=== PATIENT | female | born 1955 | race Caucasian/White ===

== ENCOUNTER 2016-05-17 14:12 | Emergency (ER) | payer MEDICAID ==
--- NOTE | 2016-05-17 14:12 | EDPHY ---
H & P Time Seen by Provider: 05/17/16 14:12 HPI/ROS: CHIEF COMPLAINT: Passed out, possible seizure HISTORY OF PRESENT ILLNESS: History from patient, EMS, and the patient's mother. Approximately 1:30 p.m. the patient was eating lunch with her family with the mother related better head dropped down, she started drooling saliva onto her shirt, and she tensed up and was holding a plate and in fact clutching at so hard that her mother and family had to pry her fingers off of it and she was like this for may be at least 8 minutes. When she did come around she was a bit confused including aphasic when EMS arrived. Now she feels fine but the patient does not remember any of this event. Further history limited by the patient's amnesia. EMS glucose was 118. REVIEW OF SYSTEMS: Eye: no change in vision ENT: no sore throat Cardiac: no chest pain or syncope Pulmonary: no cough or SOB Abdomen: no vomiting, diarrhea, abdominal pain Musculoskeletal: no back pain Skin: no rash Neuro: no headache Constitutional: no fever : no urinary symptoms A comprehensive 10 point review of systems is otherwise negative aside from elements mentioned in the history of present illness. PAST MEDICAL HISTORY: Agoraphobia otherwise negative Social history: Denies tobacco drugs or alcohol General Appearance: Alert and conversant, cooperative. Eyes: No scleral icterus. ENT, Mouth: Normal mucous membranes. No tongue laceration or abrasion Respiratory: Normal respiratory effort, breath sounds equal, lungs are clear to auscultation. Cardiovascular: Regular rate and rhythm. Gastrointestinal: Abdomen is soft and non tender. Neurological: Alert and oriented x3. Normally conversant. Face symmetric, normal movement and sensation in all extremities. Normal [id number] and extraocular motion intact and no tremor or pronator drift. Skin: Warm and dry, no rashes. Musculoskeletal: No peripheral edema and no joint swelling. Normal range of motion of the neck. Psychiatric: Not agitated. Emergency Department course/MDM: 1428: Patient became transiently tachycardic with heart rate in 130's unresponsive, trying to pull off her pulse oximeter, nonverbal in staring. Possible partial or grand mal seizure activity. I think syncope is less likely. Plan for EKG, noncontrast head CT, CBC and chemistries. 1600: Results discussed with the mother, patient is very sleepy at this point after the Ativan, possible seizure but would discharge at this point with outpatient neurology follow-up. 1650: Alert and awake, results discussed, plan to discharge with outpatient follow-up. Constitutional: Initial Vital Signs Temperature (C) 36.8 C 05/17/16 14:22 Heart Rate 83 05/17/16 14:22 Respiratory Rate 18 05/17/16 14:22 Blood Pressure 163/90 H 05/17/16 14:22 O2 Sat (%) 94 05/17/16 14:22 O2 Delivery Mode Nasal Cannula O2 (L/minute) 3 Allergies/Adverse Reactions: No Known Allergies Allergy (Unverified 05/17/16 14:22) Home Medications: Medication Instructions Recorded NK [No Known Home Meds] 05/17/16 Medical Decision Making - Diagnostics Imaging: Normal head CT per [facility] 1520. Differential Diagnosis: Differential considered including but not limited to partial seizure, primary psychiatric, generalized seizure, syncope or dysrhythmia, metabolic or hypoglycemia. - Data Points Laboratory Results: Laboratory Results 05/17/16 14:10 05/17/16 14:10 05/17/16 05/17/16 14:10 14:10 WBC 6.07 10^3/uL 10^3/uL (3.80-9.50) RBC 4.85 10^6/uL 10^6/uL (4.18-5.33) Hgb 14.5 g/dL g/dL (12.6-16.3) Hct 43.1 % % (38.0-47.0) MCV 88.9 fL fL (81.5-99.8) MCH 29.9 pg pg (27.9-34.1) MCHC 33.6 g/dL g/dL (32.4-36.7) RDW 13.4 % % (11.5-15.2) Plt Count 261 10^3/uL 10^3/uL (150-400) MPV 9.1 fL fL (8.7-11.7) Neut % (Auto) 77.3 % H % (39.3-74.2) Lymph % (Auto) 13.5 % L % (15.0-45.0) [place] % (Auto) 6.8 % % (4.5-13.0) Eos % (Auto) 1.3 % % (0.6-7.6) Baso % (Auto) 0.8 % % (0.3-1.7) Nucleat RBC Rel Count 0.0 % % (0.0-0.2) Absolute Neuts (auto) 4.69 10^3/uL 10^3/uL (1.70-6.50) Absolute Lymphs (auto) 0.82 10^3/uL L 10^3/uL (1.00-3.00) Absolute Monos (auto) 0.41 10^3/uL 10^3/uL (0.30-0.80) Absolute Eos (auto) 0.08 10^3/uL 10^3/uL (0.03-0.40) Absolute Basos (auto) 0.05 10^3/uL 10^3/uL (0.02-0.10) Absolute Nucleated RBC 0.00 10^3/uL 10^3/uL (0-0.01) Immature Gran % 0.3 % % (0.0-1.1) Immature Gran # 0.02 10^3/uL 10^3/uL (0.00-0.10) Sodium 142 mEq/L mEq/L (134-144) Potassium 3.9 mEq/L mEq/L (3.5-5.2) Chloride 104 mEq/L mEq/L (97-110) Carbon Dioxide 22 mEq/l mEq/l (22-31) Anion Gap 16 mEq/L mEq/L (8-16) BUN 18 mg/dL mg/dL (7-23) Creatinine 0.9 mg/dL mg/dL (0.6-1.0) Estimated GFR > 60 Glucose 117 mg/dL H mg/dL (70-100) Calcium 9.8 mg/dL mg/dL (8.5-10.4) Troponin I < 0.012 ng/mL ng/mL (0-0.034) Medications Given: Discontinued Medications Lorazepam (Ativan Injection) 1 mg IVP EDNOW ONE Stop: 05/17/16 14:33 Last Admin: 05/17/16 14:33 Dose: 1 mg Departure - Departure Disposition: Home, Routine, Self-Care Clinical Impression: Seizure disorder Condition: Good Instructions: Epilepsy (ED) Additional Instructions: Possible seizure. No driving until approved by follow-up physician. Your referred to Neurology. Referrals: [facility] [Clinic] - As per Instructions Patient,NotPresent [Unknown] - As per Instructions Maulik Ledbetter DO [Doctor of Osteopathy] - As per Instructions
[2016-05-17] MEDS ORDERED: LORazepam 2 MG/ML INJ ONE (14:29)
[2016-05-17] MEDS ORDERED: LORazepam 2 MG/ML INJ IVP ONE (14:32)
[2016-05-17 14:55] LABS: % IMMATURE GRANULYOCYTES 0.3 % (0.0-1.1); ABSOLUTE IMMATURE GRANULOCYTES 0.02 10^3/uL (0.00-0.10); ADD DIFF? NO; ADD MORPH? NO; ADD SCAN? NO; ATYPICAL LYMPHOCYTE FLAG 0 (0-99); FRAGMENT RBC FLAG 0 (0-99); HEMATOCRIT 43.1 % (38.0-47.0); HEMOGLOBIN 14.5 g/dL (12.6-16.3); LEFT SHIFT FLG 0 (0-99); LIPEMIA HEMOLYSIS FLAG 80 (0-99); MEAN CELL HEMOGLOBIN 29.9 pg (27.9-34.1); MEAN CELL HEMOGLOBIN CONCENTR. 33.6 g/dL (32.4-36.7); MEAN CELL VOLUME 88.9 fL (81.5-99.8); MEAN PLATELET VOLUME 9.1 fL (8.7-11.7); PLATELET CLUMPS FLAG 20 (0-99); PLATELET COUNT 261 10^3/uL (150-400); RED BLOOD CELL COUNT 4.85 10^6/uL (4.18-5.33); RED CELL DISTRIBUTION WIDTH 13.4 % (11.5-15.2)
[2016-05-17 15:14] LABS: ANION GAP 16 mEq/L (8-16); CALCIUM 9.8 mg/dL (8.5-10.4); CARBON DIOXIDE 22 mEq/l (22-31); CHLORIDE 104 mEq/L (97-110); CREATININE 0.9 mg/dL (0.6-1.0); GLOMERULAR FILTRATION RATE > 60; GLUCOSE 117 mg/dL (70-100); POTASSIUM 3.9 mEq/L (3.5-5.2); SODIUM 142 mEq/L (134-144)
[2016-05-17 15:26] LABS: TROPONIN I < 0.012 ng/mL (0-0.034)
[2016-05-17 15:32] VITALS: RESP 18
[2016-05-17 16:44] VITALS: TEMP 98.4
[2016-05-17 17:22] VITALS: BP 115/85; PULSE 79; O2SAT 96
== END 2016-05-17 17:18 | disposition home or self-care (01) ==
LOC: EDUNIT#
DX: G40.909 Epilepsy, unspecified, not intractable, without status epilepticus (principal)
CPT/HCPCS: 96374

== ENCOUNTER 2016-05-17 22:23 | Observation (INO) | payer MEDICAID ==
[2016-05-17] MEDS ORDERED: NS 500 ML IV ONE (22:29)
--- NOTE | 2016-05-17 22:39 | EDPHY ---
H & P HPI/ROS: HPI CHIEF COMPLAINT: Syncope versus seizure HISTORY OF PRESENT ILLNESS: This patient very pleasant 60-year-old female significant past medical history for agoraphobia, presents to the emergency room if she had another event at home. Patient was seen here in the emergency room earlier for what was thought to be a seizure. She came in initially by EMS for seizure versus syncope. She had a negative workup. Emergency room however had a possible witnessed generalized tonic-clonic seizure earlier in the emergency room. She presents back again to the ER by EMS after she was found lying on the ground in her kitchen. The patient's mom at bedside tells me that she was in the other room she heard a big Bang, and a broken dish she went into the kitchen found her daughter lying on the ground she was lying on her back her eyes were staring off into space she however reports no seizure activity. 911 was called EMS arrived found the patient be very confused and postictal. This has since cleared during EMS transport. Upon arrival here in emergency room the patient is alert or x4, GCS 15, no acute distress, does not appear confused she has no idea what happened. Past Medical History: Agoraphobia Past Surgical History: No significant surgical history Social History: Denies daily use of drugs alcohol tobacco products Family History: Noncontributory ROS REVIEW OF SYSTEMS: A comprehensive 10 point review of systems is otherwise negative aside from elements mentioned in the history of present illness. Exam Constitutional triage nursing summary reviewed, vital signs reviewed, awake/ alert. Eyes normal conjunctivae and sclera, EOMI, PERRLA. HENT head/neck: atraumatic normocephalic, normal inspection, atraumatic, moist mucus membranes, no epistaxis, neck supple/ no meningismus, no raccoon eyes. Respiratory clear to auscultation bilaterally, normal breath sounds, no respiratory distress, no wheezing. Cardiovascular rate normal, regular rhythm, no murmur, no edema, distal pulses normal. Gastrointestinal soft, non-tender, no rebound, no guarding, normal bowel sounds, no distension, no pulsatile mass. Genitourinary no CVA tenderness. Musculoskeletal no midline vertebral tenderness, full range of motion, no calf swelling, no tenderness of extremities, no meningismus, good pulses, neurovascularly intact. Skin pink, warm, & dry, no rash, skin atraumatic. Neurologic awake, alert and oriented x 3, AAOx3, moves all 4 extremities equally, motor intact, sensory intact, CN II-XII intact, normal cerebellar, normal vision, normal speech. Psychiatric normal mood/affect. Heme/Lymph/Immune no lymphadenopathy. Differential Diagnosis: includes but is not limited to in a particular order, seizure, cardiac arrhythmia, syncope, acute NV, dehydration, electrolyte abnormality Medical Decision Making:Plan for this patient patient had an IV established will check blood work should be having a fluid bolus, placed on full stamp mounter, she will have an IV establishment, she will need another CT scan of her head she had a another event and fell to the ground with head strike in her kitchen. Re-evaluation: ED x-ray chest one view: negative for acute cardiopulmonary disease. Image interpreted myself. CT scan of the head without IV contrast for seizure/head trauma. The results of the study are scalp hematoma or, otherwise unremarkable. The study was read by Dr. Lopez I viewed the images myself on the PACS system. EKG interpretation by me on record in [facility] system. Impression time of EKG 2303: This EKG read sinus rhythm rate of 69, left anterior fascicular block present. Otherwise no acute ischemia, specifically no ST elevation, ST depression, prolonged intervals, T-wave abnormalities. 2305: Spoke with the hospitalist service Dr. Acosta who agrees to admit this patient as this patient had a another event this would be possibly her 3rd of event of a seizure activity today. 1 prior to arrival on initial ER visit, 1 during the ER visit and now a 2nd ER visit. I have given her a Keppra load. Patient is hemodynamically stable no acute distress at this time GCS 15, alert and orient x4, normal neurological exam. Not finding anything acute on her workup however most likely is having seizures. Source: Patient, EMS - Medical/Surgical History Hx Asthma: No Hx Chronic Respiratory Disease: No Hx Diabetes: No Hx Cardiac Disease: No Hx Renal Disease: No Hx Cirrhosis: No Hx Alcoholism: No Hx HIV/AIDS: No Hx Splenectomy or Spleen Trauma: No Other PMH: agoraphobia, "arrhythmia" - Social History Smoking Status: Never smoked Constitutional: Initial Vital Signs Temperature (C) 36.8 C 05/17/16 22:30 Heart Rate 71 05/17/16 22:30 Respiratory Rate 16 05/17/16 22:30 Blood Pressure 165/93 H 05/17/16 22:30 O2 Sat (%) 96 05/17/16 22:30 O2 Delivery Mode Room Air Allergies/Adverse Reactions: No Known Allergies Allergy (Verified 05/17/16 22:43) Home Medications: Medication Instructions Recorded NK [No Known Home Meds] 05/17/16 Medical Decision Making - Data Points Laboratory Results: Laboratory Results 05/17/16 22:35 05/17/16 22:35 05/17/16 05/17/16 05/17/16 22:35 22:35 22:35 WBC 4.36 10^3/uL 10^3/uL (3.80-9.50) RBC 4.47 10^6/uL 10^6/uL (4.18-5.33) Hgb 13.3 g/dL g/dL (12.6-16.3) Hct 39.3 % % (38.0-47.0) MCV 87.9 fL fL (81.5-99.8) MCH 29.8 pg pg (27.9-34.1) MCHC 33.8 g/dL g/dL (32.4-36.7) RDW 13.2 % % (11.5-15.2) Plt Count 212 10^3/uL 10^3/uL (150-400) MPV 8.5 fL L fL (8.7-11.7) Neut % (Auto) 69.6 % % (39.3-74.2) Lymph % (Auto) 18.8 % % (15.0-45.0) [place] % (Auto) 8.5 % % (4.5-13.0) Eos % (Auto) 2.1 % % (0.6-7.6) Baso % (Auto) 0.5 % % (0.3-1.7) Nucleat RBC Rel Count 0.0 % % (0.0-0.2) Absolute Neuts (auto) 3.04 10^3/uL 10^3/uL (1.70-6.50) Absolute Lymphs (auto) 0.82 10^3/uL L 10^3/uL (1.00-3.00) Absolute Monos (auto) 0.37 10^3/uL 10^3/uL (0.30-0.80) Absolute Eos (auto) 0.09 10^3/uL 10^3/uL (0.03-0.40) Absolute Basos (auto) 0.02 10^3/uL 10^3/uL (0.02-0.10) Absolute Nucleated RBC 0.00 10^3/uL 10^3/uL (0-0.01) Immature Gran % 0.5 % % (0.0-1.1) Immature Gran # 0.02 10^3/uL 10^3/uL (0.00-0.10) PT Pending INR Pending APTT Pending Sodium 142 mEq/L mEq/L (134-144) Potassium 3.8 mEq/L mEq/L (3.5-5.2) Chloride 105 mEq/L mEq/L (97-110) Carbon Dioxide 26 mEq/l mEq/l (22-31) Anion Gap 11 mEq/L mEq/L (8-16) BUN 16 mg/dL mg/dL (7-23) Creatinine 0.8 mg/dL mg/dL (0.6-1.0) Estimated GFR > 60 Glucose 104 mg/dL H mg/dL (70-100) Calcium 9.6 mg/dL mg/dL (8.5-10.4) Magnesium 2.1 mg/dL mg/dL (1.6-2.3) Total Bilirubin 0.8 mg/dL mg/dL (0.1-1.4) Conjugated Bilirubin 0.3 mg/dL mg/dL (0.0-0.5) Unconjugated Bilirubin 0.5 mg/dL mg/dL (0.0-1.1) AST 28 IU/L IU/L (14-46) ALT 28 IU/L IU/L (9-52) Alkaline Phosphatase 58 IU/L IU/L (38-126) Creatine Kinase 97 IU/L IU/L (0-156) CK-MB (CK-2) Fraction Pending Troponin I Pending NT-Pro-B Natriuret Pep Pending Total Protein 6.8 g/dL g/dL (6.3-8.2) Albumin 4.4 g/dL g/dL (3.5-5.0) Lipase 266.0 IU/L IU/L (23-300) Departure - Departure Disposition: [facility] Inpatient Acute Clinical Impression: Seizure Condition: Fair Referrals: [facility] [Other] - As per Instructions
[2016-05-17 22:43] LABS: % IMMATURE GRANULYOCYTES 0.5 % (0.0-1.1); ABSOLUTE IMMATURE GRANULOCYTES 0.02 10^3/uL (0.00-0.10); ADD DIFF? NO; ADD MORPH? NO; ADD SCAN? NO; ATYPICAL LYMPHOCYTE FLAG 10 (0-99); FRAGMENT RBC FLAG 0 (0-99); HEMATOCRIT 39.3 % (38.0-47.0); HEMOGLOBIN 13.3 g/dL (12.6-16.3); LEFT SHIFT FLG 0 (0-99); LIPEMIA HEMOLYSIS FLAG 90 (0-99); MEAN CELL HEMOGLOBIN 29.8 pg (27.9-34.1); MEAN CELL HEMOGLOBIN CONCENTR. 33.8 g/dL (32.4-36.7); MEAN CELL VOLUME 87.9 fL (81.5-99.8); MEAN PLATELET VOLUME 8.5 fL (8.7-11.7); PLATELET CLUMPS FLAG 0 (0-99); PLATELET COUNT 212 10^3/uL (150-400); RED BLOOD CELL COUNT 4.47 10^6/uL (4.18-5.33); RED CELL DISTRIBUTION WIDTH 13.2 % (11.5-15.2)
[2016-05-17 22:54] LABS: ALANINE AMINOTRANSFERASE 28 IU/L (9-52); ALBUMIN 4.4 g/dL (3.5-5.0); ALKALINE PHOSPHATASE 58 IU/L (38-126); ANION GAP 11 mEq/L (8-16); ASPARTATE AMINOTRANSFERASE 28 IU/L (14-46); BILIRUBIN,TOTAL 0.8 mg/dL (0.1-1.4); BILIRUBIN-CONJUGATED 0.3 mg/dL (0.0-0.5); BILIRUBIN-UNCONJUGATED 0.5 mg/dL (0.0-1.1); CALCIUM 9.6 mg/dL (8.5-10.4); CARBON DIOXIDE 26 mEq/l (22-31); CHLORIDE 105 mEq/L (97-110); CREATININE 0.8 mg/dL (0.6-1.0); GLOMERULAR FILTRATION RATE > 60; GLUCOSE 104 mg/dL (70-100); MAGNESIUM 2.1 mg/dL (1.6-2.3); POTASSIUM 3.8 mEq/L (3.5-5.2); SODIUM 142 mEq/L (134-144); TOTAL PROTEIN 6.8 g/dL (6.3-8.2)
[2016-05-17] MEDS ORDERED: levETIRAcetam 1,000 MG in NS 100 ML IV ONE (22:58)
--- NOTE | 2016-05-17 23:01 | CPEKG ---
Heart Rate: 69 RR Interval: 870 P-R Interval: 180 QRSD Interval: 88 QT Interval: 404 QTC Interval: 433 P [place]: 65 QRS [place]: -56 T Wave [place]: 58 EKG Severity - ABNORMAL ECG - EKG Impression: SINUS RHYTHM EKG Impression: LEFT ANTERIOR FASCICULAR BLOCK Electronically Signed By: Ancelmo Rondon 20-May-2016 15:10:37
[2016-05-17 23:03] LABS: INR 0.99 (0.83-1.16)
[2016-05-17 23:04] LABS: APTT 29.1 SEC (23.0-38.0)
[2016-05-17 23:06] LABS: CREATINE KINASE-MB FRACTION 1.66 ng/mL (0-3.19); TROPONIN I < 0.012 ng/mL (0-0.034)
[2016-05-17] MEDS ORDERED: NS 1,000 ML IV SCH (23:45)
[2016-05-17] MEDS ORDERED: HYDROCODONE/APAP 5/325 TAB PO PRN (23:52)
[2016-05-17] MEDS ORDERED: LORazepam 2 MG/ML INJ IVP PRN (23:52)
[2016-05-17] MEDS ORDERED: ONDANSETRON DISINTEGRATING 4 MG TAB PO PRN (23:52)
[2016-05-17] MEDS ORDERED: ACETAMINOPHEN 325 MG TAB PO PRN (23:52)
[2016-05-17] MEDS ORDERED: ONDANSETRON 4 MG/2 ML VIAL IVP PRN (23:52)
--- NOTE | 2016-05-18 00:01 | PDGENHP ---
History and Physical - Chief Complaint unresponsive episodes - History of Present Illness Patient is a 60/F with no known medical history other than agoraphobia who presents to the ED twice today with unresponsive episodes. History is mostly obtained from patient's mother, as patient does not recall most of the day's events. Earlier in the day, just after eating lunch, the patient was sitting across the table from her mother when mother states her eyes glazed over, she was unresponsive and drooling. There was no obvious gaze preference, facial drooping or jerking movements of her limbs and no urinary or bowel incontinence. Her mother called 911 and by the time of EMS' arrival, the patient began to move and interact again, although was still nonverbal. By arrival to the ED, patient was hemodynamically stable and now back to her baseline mental status. She reports having no memory of the preceding events, only remembers being in the ambulance in transport. While be observed in the ED , patient again became tachycardic and unresponsive with eyes open, no obvious gaze preference, jerking movements or incontinence noted. She was given IV ativan. CT head and basic labs were obtained and unremarkable. Mental status improved, although patient was lethargic from the ativan, and patient was discharged home with plan for outpatient follow up. By arrival home, patient was back to her baseline mental status. Both she and her mother were getting ready for bed, when her mother heard a crash and thud. Mother then found the patient again unresponsive on the floor, lying on her back. She was staring straight ahead, no jerking or incontinence. EMS was again called and she was transported back to the ED. EMS noted patient appeared post- ictal on their assessment. On arrival to the ED, patient was slightly hypertensive, back to her baseline mental status and again had no memory of falling. She had a slight scalp hematoma, so repeat CT head was obtained and again unremarkable. Labs were also unremarkable. She was loaded with keppra and admitted to the hospitalist service for further management. Of note, patient denies any recent fevers, chills, headaches, vision changes, numbness, tingling or weakness. She also denies any chest pain, palpitations or shortness of breath. 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 Her mother indicated that none of what she was mentioning was true. History Information - Allergies/Home Medication List Allergies/Adverse Reactions: No Known Allergies Allergy (Verified 05/17/16 22:43) Home Medications: NK [No Known Home Meds] 05/17/16 [Last Taken Unknown] I have personally reviewed and updated: family history, medical history, social history, surgical history - Past Medical History Additional medical history: agoraphobia. ? underlying psychiatric disorder, patient reports she stopped seeing a psyschiatrist years ago - Surgical History Additional surgical history: tonsillectomy - Family History Additional family history: M: CAD - Social History Smoking Status: Never smoked Alcohol Use: None Drug Use: None Additional social history: Patient lives alone in an apartment, never , no children. Mother lives in [place]. Review of Systems ROS: 10pt was reviewed & negative except for what was stated in HPI & below Physical Exam Temp Pulse Resp BP Pulse Ox 36.8 C 71 16 165/93 H 96 05/17/16 22:30 05/17/16 22:30 05/17/16 22:30 05/17/16 22:30 05/17/16 22:30 Constitutional: no apparent distress, appears nourished, not in pain, unkempt Eyes: PERRL, anicteric sclera, EOMI Ears, Nose, Mouth, Throat: moist mucous membranes, hearing normal, ears appear normal, no oral mucosal ulcers Cardiovascular: regular rate and rhythym, no murmur, rub, or gallop, pulses symmetric bilaterally, No JVD, No edema Peripheral Pulses: 2+: dorsalis-pedis (R), dorsalis-pedis (L) Respiratory: no respiratory distress, no rales or rhonchi, clear to auscultation Gastrointestinal: normoactive bowel sounds, soft, non-tender abdomen, no palpable masses, No guarding, No rebound, No distension Genitourinary: no bladder fullness, no bladder tenderness Skin: warm, normal color, no rashes or abrasions, no fluctuance, no induration, No mottled Musculoskeletal: full muscle strength, no muscle tenderness, normal joint ROM, no joint effusions Neurologic: AAOx3, sensation intact bilaterally, CN II-XII Intact, No weakness, No numbness, No pronator drift, No asterixes, No facial droop Psychiatric: interacting appropriately, not anxious, not encephalopathic, thought process linear Lab Data & Imaging Review 05/18/16 05:33 05/18/16 05:33 WBC 4.36 10^3/uL (3.80-9.50) 05/17/16 22:35 RBC 4.47 10^6/uL (4.18-5.33) 05/17/16 22:35 Hgb 13.3 g/dL (12.6-16.3) 05/17/16 22:35 Hct 39.3 % (38.0-47.0) 05/17/16 22:35 MCV 87.9 fL (81.5-99.8) 05/17/16 22:35 MCH 29.8 pg (27.9-34.1) 05/17/16 22:35 MCHC 33.8 g/dL (32.4-36.7) 05/17/16 22:35 RDW 13.2 % (11.5-15.2) 05/17/16 22:35 Plt Count 212 10^3/uL (150-400) 05/17/16 22:35 MPV 8.5 fL (8.7-11.7) L 05/17/16 22:35 Neut % (Auto) 69.6 % (39.3-74.2) 05/17/16 22:35 Lymph % (Auto) 18.8 % (15.0-45.0) 05/17/16 22:35 [place] % (Auto) 8.5 % (4.5-13.0) 05/17/16 22:35 Eos % (Auto) 2.1 % (0.6-7.6) 05/17/16 22:35 Baso % (Auto) 0.5 % (0.3-1.7) 05/17/16:35 Nucleat RBC Rel Count 0.0 % (0.0-0.2) 05/17/16:35 Absolute Neuts (auto) 3.04 10^3/uL (1.70-6.50) 05/17/16 22:35 Absolute Lymphs (auto) 0.82 10^3/uL (1.00-3.00) L 05/17/16 22:35 Absolute Monos (auto) 0.37 10^3/uL (0.30-0.80) 05/17/16 22:35 Absolute Eos (auto) 0.09 10^3/uL (0.03-0.40) 05/17/16 22:35 Absolute Basos (auto) 0.02 10^3/uL (0.02-0.10) 05/17/16 22:35 Absolute Nucleated RBC 0.00 10^3/uL (0-0.01) 05/17/16 22:35 Immature Gran % 0.5 % (0.0-1.1) 05/17/16 22:35 Immature Gran # 0.02 10^3/uL (0.00-0.10) 05/17/16 22:35 PT 13.0 SEC (12.0-15.0) 05/17/16 22:35 INR 0.99 (0.83-1.16) 05/17/16 22:35 APTT 29.1 SEC (23.0-38.0) 05/17/16 22:35 Sodium 142 mEq/L (134-144) 05/17/16 22:35 Potassium 3.8 mEq/L (3.5-5.2) 05/17/16 22:35 Chloride 105 mEq/L (97-110) 05/17/16 22:35 Carbon Dioxide 26 mEq/l (22-31) 05/17/16 22:35 Anion Gap 11 mEq/L (8-16) 05/17/16 22:35 BUN 16 mg/dL (7-23) 05/17/16 22:35 Creatinine 0.8 mg/dL (0.6-1.0) 05/17/16 22:35 Estimated GFR > 60 05/17/16 22:35 Glucose 104 mg/dL (70-100) H 05/17/16 22:35 Calcium 9.6 mg/dL (8.5-10.4) 05/17/16 22:35 Magnesium 2.1 mg/dL (1.6-2.3) 05/17/16 22:35 Total Bilirubin 0.8 mg/dL (0.1-1.4) 05/17/16 22:35 Conjugated Bilirubin 0.3 mg/dL (0.0-0.5) 05/17/16 22:35 Unconjugated Bilirubin 0.5 mg/dL (0.0-1.1) 05/17/16 22:35 AST 28 IU/L (14-46) 05/17/16 22:35 ALT 28 IU/L (9-52) 05/17/16 22:35 Alkaline Phosphatase 58 IU/L (38-126) 05/17/16 22:35 Creatine Kinase 97 IU/L (0-156) 05/17/16 22:35 CK-MB (CK-2) Fraction 1.66 ng/mL (0-3.19) 05/17/16 22:35 Troponin I < 0.012 ng/mL (0-0.034) 05/17/16 22:35 NT-Pro-B Natriuret Pep 86 pg/mL (0-125) 05/17/16 22:35 Total Protein 6.8 g/dL (6.3-8.2) 05/17/16 22:35 Albumin 4.4 g/dL (3.5-5.0) 05/17/16 22:35 Lipase 266.0 IU/L (23-300) 05/17/16 22:35 Visualized and Interpreted Chest x-ray results: Yes Chest X-Ray results: no infiltrate, normal Visualized and Interpreted EKG results: Yes EKG Interpretation: Positive for: normal sinsus rhythm (with LAFB) Assessment & Plan Assessment: Patient is a 60/F with no known medical history, not currently on any medications, who presents to the ED for a second time after unresponsive episodes, which appear consistent with new onset seizures. Plan: # syncope Patient with a total of three episodes of unresponsive episodes that improve over minutes, appear consistent with nonconvulsive seizures. Differential also includes syncopal episodes or TIAs. Etiology of new seizures is unclear, electrolytes are all within normal limits, she denies any medication or supplement use, is normoglycemic and CT head are unremarkable x 2. Keppra load was initiated in the ED, will cont keppra 500 mg BID. Will also obtain neurology consult, check TSH, drug screen, EEG and MRI brain. Will also place on telemetry, monitor troponins and check TTE for cardiac syncope w/u. 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 These appear to be chronic delusions according to her mother and pt's mood appears otherwise stable. She denies any SI/HI. This can likely be fully assessed as outpatient. # dispo: admit to observation status for new onset seizure work up # gen: regular diet DVT ppx: lovenox Full code
[2016-05-18 01:57] LABS: COLOR YELLOW; LEUKOCYTE ESTERASE,URINE 2+ (NEGATIVE); NITRITE,URINE NEGATIVE (NEGATIVE)
[2016-05-18 03:05] LABS: MUCUS TRACE /lpf (NONE-1+)
[2016-05-18 05:56] LABS: % IMMATURE GRANULYOCYTES 0.3 % (0.0-1.1); ABSOLUTE IMMATURE GRANULOCYTES 0.01 10^3/uL (0.00-0.10); ADD DIFF? NO; ADD MORPH? NO; ADD SCAN? NO; ATYPICAL LYMPHOCYTE FLAG 10 (0-99); FRAGMENT RBC FLAG 0 (0-99); HEMATOCRIT 34.5 % (38.0-47.0); HEMOGLOBIN 11.8 g/dL (12.6-16.3); LEFT SHIFT FLG 0 (0-99); LIPEMIA HEMOLYSIS FLAG 90 (0-99); MEAN CELL HEMOGLOBIN 30.3 pg (27.9-34.1); MEAN CELL HEMOGLOBIN CONCENTR. 34.2 g/dL (32.4-36.7); MEAN CELL VOLUME 88.5 fL (81.5-99.8); MEAN PLATELET VOLUME 8.7 fL (8.7-11.7); PLATELET CLUMPS FLAG 10 (0-99); PLATELET COUNT 190 10^3/uL (150-400); RED CELL DISTRIBUTION WIDTH 13.2 % (11.5-15.2)
[2016-05-18 06:11] LABS: ALANINE AMINOTRANSFERASE 26 IU/L (9-52); ALBUMIN 3.8 g/dL (3.5-5.0); ALKALINE PHOSPHATASE 45 IU/L (38-126); ANION GAP 10 mEq/L (8-16); ASPARTATE AMINOTRANSFERASE 20 IU/L (14-46); BILIRUBIN,TOTAL 0.7 mg/dL (0.1-1.4); CALCIUM 8.9 mg/dL (8.5-10.4); CARBON DIOXIDE 23 mEq/l (22-31); CHLORIDE 110 mEq/L (97-110); CREATININE 0.7 mg/dL (0.6-1.0); GLOMERULAR FILTRATION RATE > 60; GLUCOSE 79 mg/dL (70-100); POTASSIUM 3.9 mEq/L (3.5-5.2); SODIUM 143 mEq/L (134-144)
[2016-05-18 06:17] LABS: APTT 31.1 SEC (23.0-38.0); INR 1.1 (0.83-1.16); PROTIME(PATIENT) 14.1 SEC (12.0-15.0)
[2016-05-18 06:23] LABS: TROPONIN I < 0.012 ng/mL (0-0.034)
[2016-05-18 08:11] VITALS: RESP 18
[2016-05-18] MEDS ORDERED: GADOBUTROL 10 ML VIAL IVP ONE (08:49)
[2016-05-18] MEDS ORDERED: ENOXAPARIN 40 MG/0.4 ML SYR SC SCH (09:00)
[2016-05-18] MEDS ORDERED: levETIRAcetam 500 MG in NS 100 ML IV SCH (09:00)
[2016-05-18 12:59] VITALS: BP 112/70; PULSE 55; TEMP 98.1; O2SAT 94
--- NOTE | 2016-05-18 13:43 | PDCONSULT ---
[facility] Note: HOSPITAL NEUROLOGY CONSULT REQUESTING: Noemi Acosta DO REASON: spells of loss of consciousness HPI: This is a 60-year-old woman with a history of agoraphobia and chronic delusions who presented to our facility yesterday due to episodes of loss of consciousness. History is mainly provided by the patient's mother, as the patient is actively delusional and unable to maintain a meaningful conversation. The patient was hosting her mother for lunch yesterday. During lunch, the patient was noted to abruptly slump over in the upper torso with her eyes open while seated at the dining table. The patient was holding a plate and had this clenched in her hands and was holding it away from her body. Her neck was without postural tone and her mother and another family member tried to pry the plate away from the patient's hands. Eventually, the patient released the plate , but still had stiffening of the upper extremities and loss of tone in her neck. This lasted several minutes. Thereafter, the patient apparently returned to her baseline speech/language output, which is always with active delusions, tangentiality and perseveration. There is no clonic movements, no tongue laceration and no incontinence. Patient's mother summoned EMS. On arrival to the Emergency Department, the patient had another spell of loss of awareness with eyes open. She was tachycardic at that time. She did return to her baseline thereafter again, very similarly to her initial episode. The patient had a CT head without contrast that was unremarkable and was discharged home. Later that evening, the patient had another spell. Her mother was in another room and heard a crash in the kitchen. She found the patient on the kitchen floor lying motionless with her eyes open. This again lasted several minutes and the patient then returned to baseline. No motoric activity was observed including automatisms of the extremities or face. She was loaded with levetiracetam in the emergency department and had a MRI brain without contrast that did not show any acute findings or anything of concern. She was admitted for further evaluation and observation. 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 Her mother indicates there has always been delusions and she had initially been evaluated by psychiatrist in her college days for anxiety and panic, but she discontinued mental Health Services thereafter. There are no active suicidal or homicidal ideations and she does not have any active hallucinations. ROS: As per the HPI, otherwise a complete 12 point ROS was performed and is negative ALLERGIES AND MEDS: As recorded in the EMR - reviewed and reconciled PFSH: As per the intake H&P by Dr. Acosta from 05/17/16 EXAM: VS reviewed in EMR GEN: WDWN laying in NAD HEENT: NCAT, sclera anicteric, conjunctiva not injected, MMM, oropharynx clear, no scalp tenderness NECK: supple, nontender, no meningismus CV: RRR s1 s2 wo m/r/c/g. Carotid pulses 2+ wo bruit NEURO: MS: awake, alert, oriented to self, place, not time or situation. Speech nondysarthric, but content is tangential and perseverative (baseline per mother) . No language disturbance. Active delusions as noted in HPI. No hallucinations. No SI/HI. Follows commands. Attends to both sides. Unable to get a good sense of memory due to her speech content. Odd affect, a bit apprehensive of staff. Fund of knowledge seems adequate. CN: pupils 3mm round and reactive. Fundi with sharp discs. VFF. Primary gaze centered. Full ocular motility. Facial sensation preserved. Face symmetric. Hearing grossly intact to finger rub. Palatoglossal movements intact. Shoulder shrug and head turn strong. MOTOR: normal bulk/tone. No adventitial movements. Full power throughout. SENSORY: intact to all modalities throughout. No extinction. COORD: no ataxia FN/HS. Stephanie preserved. REFLEX: plantars down. No clonus. DTRS 2/4. GAIT: deferred to PT safety eval DATA REVIEW: Labs reviewed in EMR PERSONALLY INTERPRETED RESULTS AND DATA: MRI brain wo - some mild scattered subcortical T2 FLAIR hyperintensities, likely chronic microvascular in origin. No acute findings. IMPRESSION AND RECOMMENDATIONS: // SPELLS OF LOSS OF AWARENESS // DELUSIONAL DISORDER - ACTIVE/UNTREATED // AGAROPHOBIA Patient with multiple spells of loss of awareness, with mixed semiology. There are some indications of some tonic stiffening of the upper extremities on her 1st spell, though seems that she volitionally released the plate from her hands. There was some concern about a possible postictal confusional state, however, her mother indicates that her current cognitive/speech status is her baseline and she returned to that after her spells. I have a low suspicion that these are actually epileptiform in origin and I suspect these are more behavioral/nonepileptic spells. I recommend continued seizure safety precautions which were discussed with the patient and her mother including not swimming/tub bathing alone, not climbing heights, not operating heavy machinery and not performing any other activities that could put herself or others and harm's way due to her spells. She is not permitted to drive due to her spells of loss of awareness, per [facility] law, for a minimum of 90 days, and at least 180 days if she does not have any follow-up. The restriction is from the date of her last spell. I would stop levetiracetam in favor of valproic acid, moreso for mood stabilization properties rather than anti-seizure properties, but she would have coverage for both in VPA. Will start VPA 250mg PO BID (labs, including CBC and liver enzymes reviewed). Would ideally increase to 500mg PO BID after one week, but we need to ensure adequate followup for drug monitoring with escalating doses (namely CBC and liver enzymes). I would have her followup in our clinic for arrangement of outpatient video EEG of 4 hours duration with sleep. If spells continue, she may need evaluation at [facility] for epilepsy monitoring unit admission. I strongly urged patient and mother that the patient have psychiatric followup after discharge. Case management/social work consult for safe disposition - I am not confident the patient will be compliant with medication or followup.
--- NOTE | 2016-05-18 15:27 | GDS ---
[f rep st] DISCHARGE SUMMARY ALL DIAGNOSES: 1. Episodes of unresponsiveness. 2. History of agoraphobia. 3. Delusional thought process. CONSULTATIONS: Neurology. HOSPITAL COURSE: This is a 60-year-old female admitted with a few episodes of unresponsiveness. Th walter were initially thought to be potentially epileptogenic in origin. She had neuroimaging, includi ng brain MRI, which showed nothing acute. It did show small nonspecific white matter disease. She also had a CT head which was negative for any intracranial hemorrhage. Telemetry monitoring did not show any arrhythmias. She was seen by Neurology who felt that these were most likely non-epileptog enic episodes. It was recommended that she follow up with an outpatient 4-hour EEG with sleep. If she does continue to have spells, she may need evaluation at [facility]. I did recommend valproic acid as much for mood stabilization as for its antiepileptogenic properties. Also, said that she would need a minimum of 90 days without driving and 180 days if she does not have any followup. This was all communicated to her and her mother. I have written her prescription for valproic acid 250 b.i.d. wi th the hope that she will follow up with a psychiatrist or counselor and potentially have this uptit rated. Her mother is very involved in her care. DISPOSITION: She will be discharged in stable condition with the above recommendations. /[id number]/MODL
[2016-05-18] MEDS ORDERED: VALPROIC ACID 250 MG CAP PO SCH (21:00)
--- NOTE | 2016-05-19 10:17 | ECHO ---
[id number] + + [id number] : : [place] [address] : : [phone] + + Adult Echocardiographic Report + + :Name: MADHAVI SCHUMACHER Date: 05/18/2016 12:14 PM : : Hospital Admission Number: [id number] Lo cation: 223: :: 1955 Gender: Female Height: 68 in : :Age: 60 yrs Race: WH Weight: 13 4 lb : :Reason For Study: syncope vs seizures x 3 : : BSA: 1.7 m eters2 : :History: No previous : + + MMode/2D Measurements \T\ Calculations IVSd: 1.0 cm LVIDd: 3.4 cm FS: 35.4 % LVOT diam: 1.7 cm LVPWd: 1.1 cm LVIDs: 2.2 cm EDV(Teich): LVOT area: 45.9 ml 2.3 cm2 ESV(Teich): 15.6 ml EF(Teich): 66.0 % LVLd ap4: 7.5 cm SV(MOD-sp4): EDV(MOD-sp4): 38.0 ml 52.0 ml LVLs ap4: 5.9 cm ESV(MOD-sp4): 14.0 ml EF(MOD-sp4): 73.1 % Normal Measurement Values: + + :LVIDd (3.5-5.7cm) IVSd (0.6-1.1cm) LVPWd (0.6-1.1cm) Aortic Root (2.0-3.7cm)Left Atrium (1.5-4.0cm): :LV Vol(d) (76-115ml) LV Vol(s) (29-48ml) Ejec Fraction (50-65%)PV Jacky (0.6- 1.2m/s) TV Jacky (0.4-1.0m/s) : :MV E Jacky (0.8-1.0m/s)MV A Jacky (0.3-1.0m/s)LVOT Jacky (0.7-1.2m/s) Asc Ao Jacky ( 0.9-1.8m/s) : + + Doppler Measurements \T\ Calculations MV E max jacky: MV V2 max: Ao mean PG: LV V1 mean P.9 cm/sec 110.6 cm/sec 4.0 mmHg 2.2 mmHg MV A max jacky: MV max PG: Ao V2 mean: LV V1 mean: 68.6 cm/sec 4.9 mmHg 91.4 cm/sec 68.2 cm/sec MV E/A: 1.2 MV V2 mean: Ao V2 VTI: 29.9 cm LV V1 VTI: 23.8 cm MV dec time: 61.7 cm/sec SJ(I,D): 1.9 cm2 0.25 sec MV mean P.8 mmHg MV V2 VTI: 31.0 cm MVA(VTI): 1.8 cm2 SV(LVOT): 55.7 ml PA V2 max: TR max jacky: Pulm Sys Jacky: 80.1 cm/sec 214.5 cm/sec 42.0 cm/sec PA max PG: TR max PG: Pulm Ferrari Jacky: 2.6 mmHg 18.4 mmHg 39.3 cm/sec RAP systole: Pulm A Revs Jacky: 10.0 mmHg 25.5 cm/sec RVSP(TR): Pulm A Revs Dur: 28.4 mmHg 0.13 sec Pulm S/D: 1.1 Left Ventricle The left ventricle is normal in size and function. There is normal left ventricular wall thickness. Ejection Fraction = 65%. There is Doppler evidence for diastolic dysfunction. Regional wall motion abnormalities cannot be excluded due to limited visualization. Right Ventricle The right ventricle is normal in size and function. Atria The left atrial size is normal. Right atrial size is normal. The interatrial septum is intact with no evidence for an atrial septal defect. Mitral Valve The mitral valve is normal in structure and function. There is no mitral valve stenosis. There is trace to mild mitral regurgitation. Tricuspid Valve The tricuspid valve is normal in structure and function. There is no tricuspid stenosis. There is mild tricuspid regurgitation. Right ventricular systolic pressure is 28.4mmHg. Aortic Valve The aortic valve is not well visualized. There is no aortic stenosis. There is no aortic insufficiency. Pulmonic Valve The pulmonic valve is not well visualized. There is no pulmonic valvular stenosis. There is no pulmonic valvular regurgitation. Great Vessels The aortic root is normal size. Pericardium/Pleural There is a fat pad seen. Conclusion A complete two-dimensional transthoracic echocardiogram was performed (2D, M-mode, Doppler and color flow Doppler). The study was technically difficult. The left ventricle is normal in size and function. Ejection Fraction = 65%. There is Doppler evidence for diastolic dysfunction. Normal appearing valvular structures. There is trace to mild mitral regurgitation. There is mild tricuspid regurgitation. Right ventricular systolic pressure is 28.4mmHg. Final Reading Physician: Ross Cowan signed on 05/19/2016 10:15 AM Ordering Physician: Noemi Acosta Performed By: Julianna Meeks
== END 2016-05-18 15:03 | disposition home or self-care (01) ==
LOC: EDUNIT# → INTOOBSV 23:06 → F2W 05-18 00:43
PROVIDERS: ADMIT Internal Medicine; ATTEND Student in an Organized Health Care Education/Training Program
DX: R40.4 Transient alteration of awareness (principal); F22 Delusional disorders; F40.00 Agoraphobia, unspecified; R55 Syncope and collapse; S00.03XA Contusion of scalp, initial encounter; W19.XXXA Unspecified fall, initial encounter; Y92.019 Unspecified place in single-family (private) house as the place of occurrence of the external cause; Z82.49 Family history of ischemic heart disease and other diseases of the circulatory system
CPT/HCPCS: 70450; 70551; 71010; 93005; 93306; G0378; 80305; A9585; J1650; J1953

== ENCOUNTER → 2016-06-04 | Outpatient (CLI) | payer MEDICAID ==
--- NOTE | 2016-06-05 09:18 | CPEEG ---
[f rep st] ELECTROENCEPHALOGRAM DATE OF STUDY: 06/04/2016 INTRODUCTION: This is a multichannel EEG using the standard International 10-20 system of disk elec trode placement. A single EKG channel was monitored for the duration of the study. This study is u ndertaken for spells of abnormal behavior. Pertinent medications include valproic acid. The durati on of the study is 33 minutes. DESCRIPTION OF RECORDING: In the maximum alert state, the patient achieves a posterior dominant rhy thm of symmetric 9.5 Hz alpha that attenuated with eye opening. Photic stimulation and hyperventila tion were performed and failed to activate the tracing. The patient was intermittently drowsy as ma rked by waning of the background, slow roving eye movements, anterior spread of alpha, and a rare, g eneralized drowsy burst of 3 Hz generalized delta. No sleep cycling was observed. The EKG demonstr ated normal sinus rhythm. INTERPRETATION: Normal awake and drowsy EEG. CLINICAL CORRELATION: No focal lateralizing epileptiform discharges or electrographic seizures. /[id number]/MODL
== END ==
LOC: FCPNEURO 12:15
PROVIDERS: ATTEND Psychiatry & Neurology Neurology
DX: R46.89 Other symptoms and signs involving appearance and behavior (principal)

== ENCOUNTER 2016-06-13 10:15 | Emergency (ER) | payer MEDICAID ==
[2016-06-13 10:29] VITALS: PULSE 67
--- NOTE | 2016-06-13 10:31 | CPEKG ---
Heart Rate: 65 RR Interval: 923 P-R Interval: 156 QRSD Interval: 82 QT Interval: 392 QTC Interval: 408 P [place]: 69 QRS [place]: -45 T Wave [place]: 55 EKG Severity - ABNORMAL ECG - EKG Impression: SINUS RHYTHM EKG Impression: LEFT ANTERIOR FASCICULAR BLOCK Electronically Signed By: Burak Thorpe 13-Jun-2016 11:53:19
[2016-06-13 10:39] LABS: % IMMATURE GRANULYOCYTES 0.7 % (0.0-1.1); ABSOLUTE IMMATURE GRANULOCYTES 0.03 10^3/uL (0.00-0.10); ADD DIFF? NO; ADD MORPH? NO; ADD SCAN? NO; ATYPICAL LYMPHOCYTE FLAG 10 (0-99); FRAGMENT RBC FLAG 0 (0-99); HEMATOCRIT 43.5 % (38.0-47.0); HEMOGLOBIN 14.6 g/dL (12.6-16.3); LEFT SHIFT FLG 0 (0-99); LIPEMIA HEMOLYSIS FLAG 80 (0-99); MEAN CELL HEMOGLOBIN 29.6 pg (27.9-34.1); MEAN CELL HEMOGLOBIN CONCENTR. 33.6 g/dL (32.4-36.7); MEAN CELL VOLUME 88.1 fL (81.5-99.8); MEAN PLATELET VOLUME 9.5 fL (8.7-11.7); PLATELET CLUMPS FLAG 0 (0-99); PLATELET COUNT 189 10^3/uL (150-400); RED BLOOD CELL COUNT 4.94 10^6/uL (4.18-5.33)
--- NOTE | 2016-06-13 10:47 | EDPHY ---
H & P Stated Complaint: witnessed syncope lasting 30-60 seconds, fall, back of head hit rock Source: Patient Exam Limitations: No limitations - Personal History Current Tetanus/Diphtheria Vaccine: Yes Current Tetanus Diphtheria and Acellular Pertussis (TDAP): Yes - Medical/Surgical History Hx Asthma: No Hx Chronic Respiratory Disease: No Hx Diabetes: No Hx Cardiac Disease: No Hx Renal Disease: No Hx Cirrhosis: No Hx Alcoholism: No Hx HIV/AIDS: No Hx Splenectomy or Spleen Trauma: No Other PMH: agoraphobia, "arrhythmia" - Social History Smoking Status: Never smoked Time Seen by Provider: 06/13/16 10:18 HPI/ROS: CHIEF COMPLAINT: Seizure versus syncope HISTORY OF PRESENT ILLNESS: The patient presents to the ED after a seizure versus syncopal episode. The patient was reportedly at home gardening when she developed a seizure versus syncopal episode. The patient was recently admitted to the hospital with a similar event. She had a negative MRI of her brain at that point time. She was discharged on Depakote which she has been taking. Patient did strike her head today, she complains of a mild occipital headache with small laceration. She also complains of some posterior cervical pain. She denies tongue bite or incontinence. She denies taking medications aside from Depakote. She denies drug or alcohol use. REVIEW OF SYSTEMS: A comprehensive 10 point review of systems is otherwise negative aside from elements mentioned in the history of present illness. (Burak Thorpe) - Physical Exam Exam: General Appearance: Alert, no distress Head: 1 cm posterior scalp laceration Eyes: Pupils equal, round, reactive ENT, Mouth: No hemotympanum, no oral trauma Neck: In cervical collar, minimal midline tenderness to palpation in the upper cervical spine Respiratory: No chest wall tender, subcutaneous air, lungs clear bilaterally Cardiovascular: Regular rate and rhythm Abdomen: Abdomen is soft and nontender, pelvis stable Skin: No lacerations, No abrasion Back: No midline T/L/S pain Extremities: Nontender, full range of motion Neurological: A&Ox3, normal motor function, normal sensory exam (Burak Thorpe) Constitutional: Initial Vital Signs Temperature (C) 36.9 C 06/13/16 10:28 Heart Rate 67 06/13/16 10:28 Respiratory Rate 17 06/13/16 10:28 Blood Pressure 171/88 H 06/13/16 10:28 O2 Sat (%) 94 06/13/16 10:28 O2 Delivery Mode Room Air Allergies/Adverse Reactions: No Known Allergies Allergy (Verified 06/13/16 10:26) Home Medications: Medication Instructions Recorded Herbals/Supplements -Info Only 1 ea PO DAILY 05/18/16 Valproic Acid [Depakene 250MG (*)] 250 mg PO BID #60 cap 05/18/16 Medical Decision Making - Diagnostics EKG Interpretation: EKG: Complete interpretation has been separately recorded in the [facility] archive. Summary impression: Sinus rhythm (Burak Thorpe) Imaging: Imaging Impressions Cervical Spine CT 06/13/16 10:32 Impression: 1. No acute intracranial abnormality seen 2. No acute osseous abnormality seen about the cervical spine. 3. Degenerative disk disease at C4-C5, C5-C6, and C6-C7. 4. Mild soft tissue swelling over the posterior superior calvarium. These findings discussed by telephone with Dr. Matt Thorpe at [address] 06/13/16 10:32 Impression: 1. No acute intracranial abnormality seen 2. No acute osseous abnormality seen about the cervical spine. 3. Degenerative disk disease at C4-C5, C5-C6, and C6-C7. 4. Mild soft tissue swelling over the posterior superior calvarium. These findings discussed by telephone with Dr. Matt Thorpe at 1112 hrs. Procedures: Procedure: Laceration repair. I was requested by to perform wound closure I explained the indications, risks and benefits for both laceration repair and anesthetic administration. Verbal consent was obtained from the patient . The laceration on the occipital scalp was anesthetized using 0.5% bupivicaine with epinephrine . After anesthetic administered the patient was observed for a period of time and had no apparent adverse effects. The wound was cleaned, prepped, draped in normal sterile fashion and explored to its base. No foreign body seen, no foreign bodies palpated. There were no deep structures involved. The wound was repaired with 3 madison. The wound repair was simple. The procedure was performed by myself. Patient has been informed that scarring will occur, although efforts have been made to minimize this. (Inocencia Mayer) ED Course/Re-evaluation: The patient presents to the ED after a seizure versus syncopal episode. In reviewing her past medical history she has had several of these spells. She did not appear to be postictal. She did not have a tongue bite. She was noted to be neurologically intact. She did have a 1 cm laceration in small hematoma noted to her occiput. She had some mild minimal mid cervical pain. Given the patient's pain and traumatic injury she was taken for a stat CT scan of the head and cervical spine which fortunately demonstrate no fracture. The patient's scalp laceration was repaired by the physician him assistant Edward Mayer. The patient was observed in evaluated 3 times by myself in the ED over a 2 hour period. She remains neurologically intact. I have cleared her cervical spine radiographically and clinically at 11:50 a.m.. The patient will be discharged home and follow up with her regular neurologist for a recheck this week. She is discharged home with customary seizure aftercare instructions. (Burak Thorpe) Differential Diagnosis: Differential diagnosis considered includes scalp laceration, skull fracture, intracranial hemorrhage, metabolic abnormality (Burak Thorpe) - Data Points Laboratory Results: Laboratory Results 06/13/16 Unknown 06/13/16 Unknown 06/13/16 06/13/16 Unknown Unknown WBC 4.48 10^3/uL 10^3/uL (3.80-9.50) RBC 4.94 10^6/uL 10^6/uL (4.18-5.33) Hgb 14.6 g/dL g/dL (12.6-16.3) Hct 43.5 % % (38.0-47.0) MCV 88.1 fL fL (81.5-99.8) MCH 29.6 pg pg (27.9-34.1) MCHC 33.6 g/dL g/dL (32.4-36.7) RDW 13.0 % % (11.5-15.2) Plt Count 189 10^3/uL 10^3/uL (150-400) MPV 9.5 fL fL (8.7-11.7) Neut % (Auto) 75.5 % H % (39.3-74.2) Lymph % (Auto) 14.5 % L % (15.0-45.0) Fajardo % (Auto) 8.0 % % (4.5-13.0) Eos % (Auto) 0.9 % % (0.6-7.6) Baso % (Auto) 0.4 % % (0.3-1.7) Nucleat RBC Rel Count 0.0 % % (0.0-0.2) Absolute Neuts (auto) 3.38 10^3/uL 10^3/uL (1.70-6.50) Absolute Lymphs (auto) 0.65 10^3/uL L 10^3/uL (1.00-3.00) Absolute Monos (auto) 0.36 10^3/uL 10^3/uL (0.30-0.80) Absolute Eos (auto) 0.04 10^3/uL 10^3/uL (0.03-0.40) Absolute Basos (auto) 0.02 10^3/uL 10^3/uL (0.02-0.10) Absolute Nucleated RBC 0.00 10^3/uL 10^3/uL (0-0.01) Immature Gran % 0.7 % % (0.0-1.1) Immature Gran # 0.03 10^3/uL 10^3/uL (0.00-0.10) Sodium 148 mEq/L H mEq/L (134-144) Potassium 3.9 mEq/L mEq/L (3.5-5.2) Chloride 107 mEq/L mEq/L (97-110) Carbon Dioxide 28 mEq/l mEq/l (22-31) Anion Gap 13 mEq/L mEq/L (8-16) BUN 13 mg/dL mg/dL (7-23) Creatinine 0.7 mg/dL mg/dL (0.6-1.0) Estimated GFR > 60 Glucose 90 mg/dL mg/dL (70-100) Calcium 9.7 mg/dL mg/dL (8.5-10.4) Valproic Acid 21.3 mcg/mL L mcg/mL (50.0-150.0) Departure - Departure Disposition: Home, Routine, Self-Care Clinical Impression: Laceration of scalp, Seizure Condition: Good Instructions: New-Onset Seizure in Adults (ED) Additional Instructions: 1. No driving, dangerous activities such as riding a ski lift, swimming in a pool or other behavior that could put you or someone else at risk in the event of a recurrent seizure. You will need to be cleared by a neurologist to resume these activities. 2. Please return to the ED for recurrent seizure, headache, numbness, weakness, altered mental status or other concerns. 3. Please follow up with neurologist you have been referred to this week to schedule a follow-up appointment. 4. Return to the emergency department in 10 days for suture/staple removal Referrals: Maulik Ledbetter DO [Doctor of Osteopathy] - As per Instructions
[2016-06-13 10:49] LABS: ANION GAP 13 mEq/L (8-16); CALCIUM 9.7 mg/dL (8.5-10.4); CARBON DIOXIDE 28 mEq/l (22-31); CHLORIDE 107 mEq/L (97-110); CREATININE 0.7 mg/dL (0.6-1.0); GLOMERULAR FILTRATION RATE > 60; GLUCOSE 90 mg/dL (70-100); POTASSIUM 3.9 mEq/L (3.5-5.2); SODIUM 148 mEq/L (134-144)
[2016-06-13 12:55] VITALS: BP 175/84; RESP 15; TEMP 98.8; O2SAT 97
== END 2016-06-13 13:02 | disposition home or self-care (01) ==
LOC: EDUNIT#
PROC: 0HQ0XZZ Repair Scalp Skin, External Approach (ICD-10-PCS; principal; 2016-06-13)
DX: S01.01XA Laceration without foreign body of scalp, initial encounter (principal); R56.9 Unspecified convulsions; W22.8XXA Striking against or struck by other objects, initial encounter